=== PATIENT | female | born 1995 | race Hispanic/Latino ===

== ENCOUNTER 2021-04-03 01:04 | Emergency (ER) | payer OTHER, SELFPAY | END 2021-04-03 02:56 | disposition home or self-care (01) | LOC: ERS 01:04 | DX: H57.11 Ocular pain, right eye (principal) | CPT/HCPCS: 93005 ==

== ENCOUNTER 2021-05-27 20:55 | Emergency (ER) | payer SELFPAY ==
[2021-05-27] MEDS ORDERED: Metoclopramide HCl 10 MG TAB ONE (22:03)
[2021-05-27] MEDS ORDERED: Acetaminophen 500 MG TAB ONE (22:03)
[2021-05-27] MEDS ORDERED: Ketorolac Tromethamine 30 MG/ML VIAL ONE (22:03)
== END 2021-05-27 23:02 | disposition home or self-care (01) ==
LOC: ERS 20:55
DX: G43.909 Migraine, unspecified, not intractable, without status migrainosus (principal)
CPT/HCPCS: 70450; 96372; J1885

== ENCOUNTER 2022-05-21 15:07 | Outpatient (CLI) | payer OTHER | END 2022-05-21 15:08 | disposition home or self-care (01) | LOC: BICULT 15:07 | PROVIDERS: ATTEND Student in an Organized Health Care Education/Training Program | DX: N64.4 Mastodynia (principal) ==

== ENCOUNTER 2025-11-01 14:01 | Outpatient (CLI) | payer OTHER | END 2025-11-01 14:02 | disposition home or self-care (01) | LOC: BICRAD 14:01 | PROVIDERS: ATTEND Family Medicine | DX: R07.9 Chest pain, unspecified (principal) | CPT/HCPCS: 71046 ==